=== PATIENT | male | born 1980 | race African-American/Black ===

== ENCOUNTER → 2016-10-22 | Outpatient (CLI) | payer OTHER ==
[~2016-10-22] MED LIST: CEPHALEXIN500 M1 PO; DEMEROL 50M50 MG/TAB; DILAUDID 2MG TAB2 MG PO; LORTAB 5/500 501 TAB PO; NAPROSYN500 MG PO; NO HOME MEDICATIONS; PHENERGAN 25 TA25 MG PO; PREDNISONE20 MG PO; TYLENOL #4 (1 UDTAB; VALIUM 5MG T5 MG/TAB PO
== END ==
LOC: COL.LAB 12:19
DX: R50.9 Fever, unspecified (principal)